=== PATIENT | female | born 1970 | race Caucasian/White ===

== ENCOUNTER 2018-02-12 02:06 | Emergency (ER) | payer OTHER ==
[~2018-02-12] VITALS: Ht 165.1 cm; Wt 65.8 kg
[2018-02-12] MEDS ORDERED: IMITREX50 M1 (02:24)
[2018-02-12] MEDS ORDERED: PROCHLORPERAZIN10 MG (02:25)
[2018-02-12] MEDS ORDERED: [UNRECOGNIZED DRUG - OTHER] (02:25)
[2018-02-12] MEDS ORDERED: DICLOFENAC SOD2.5 M1 OPH (03:44)
[2018-02-12] MEDS ORDERED: OCUFLOX5 ML OPH (03:44)
--- NOTE | 2018-02-12 03:46 | ED EYE COMPLAINT ---
History of Present Illness General Chief Complaint: Eye Problems Stated Complaint: "SOMTHING IN MY RT EYE" Source: patient Exam Limitations: no limitations Vital Signs & Intake/Output Vital Signs & Intake/Output Vital Signs Date Time Temp Pulse Resp B/P B/P Pulse O2 O2 Flow FiO2 Mean Ox Delivery Rate 02/12 222 82 18 157/89 100 Room Air 02/13 220 Room Air Allergies Coded Allergies: cephalexin (RASH 02/12/18) Reconcile Medications Prochlorperazine Maleate 10 MG TABLET 10 NAUSEA (Reported) Sumatriptan Succinate (Imitrex) 50 MG TABLET 50 MIGRAINE (Reported) Sumatriptan Succinate (Sumavel Dosepro) 6 MG/0.5 ML NDL.FR.INJ 6 MIGRAINE ( Reported) Triage Note: PT C/O R EYE PAIN THAT BEGAN AT 2100 THIS EVENING. PT REPORTS SHE WEARS CONTACTS AND HAD BEEN WEARING IT ALL DAY UNTIL SHE FELT IRRITATION. DENIES VISION CHANGES OR BLURRY VISION. PT REPORTS ONLY PAIN. Triage Nurses Notes Reviewed? yes HPI: Patient presents for evaluation of a constant right eye pain that began gradually earlier this evening. At about 9:00 patient took out her contact lenses because of the irritated feeling. She began to feel worse prompting her to come to the emergency department for evaluation. She is concerned that she has something in the eye although denies any known injury or definite foreign body into the eye (she states something may have come off a ceiling tile into her eye but she didn't have symptoms initially). She denies any associated fever or cold symptoms. Past History Travel History Traveled to [place] past 21 day No Medical History Any Pertinent Medical History? see below for history Neurological: migraine Surgical History Surgical History: non-contributory Psychosocial History What is your primary language Chinese Tobacco Use: Never used Family History Hx Contributory? No Review of Systems Review of Systems Constitutional: Reports: no symptoms. Eyes: Reports: see HPI. Ear: Reports: no symptoms. Nose: Reports: no symptoms. Mouth: Reports: no symptoms. Throat: Reports: no symptoms. Respiratory: Reports: no symptoms. Cardiovascular: Reports: no symptoms. GI: Reports: no symptoms. Genitourinary: Reports: no symptoms. Musculoskeletal: Reports: no symptoms. Skin: Reports: no symptoms. Neurological/Psychological: Reports: no symptoms. Hematologic/Endocrine: Reports: no symptoms. Immunologic/Allergic: Reports: no symptoms. All Other Systems: Reviewed and Negative Physical Exam General Appearance: well developed/nourished, MILD DISCOMFORT SECONDARY TO RIGHT EYE PAIN General Inspection: normal inspection General Inspection: SEE BELOW Eyelid: normal inspection, everted for exam Conjunctiva/Sclera: MILD INJECTION Cornea: normal inspection, examined w/fluorescein EOM: intact Pupil: normal accommodation, normal pupil Anterior Chamber: normal inspection Physical Exam Comments: Gen.: Well-nourished, well-developed, no acute respiratory distress. Head: Normocephalic, atraumatic. Eyes: See exam above Ears: Normal inspection bilaterally Nose: Normal inspection Throat/mouth : Moist mucosa Neck: Supple, full range of motion, no goiter Lungs: Quiet respirations Back: Normal range of motion Extremities: Normal range of motion grossly, no cyanosis clubbing or edema of the upper extremities Neurologic: Cranial nerves grossly intact, speech is clear Skin: warm and dry Psychiatric: Calm, cooperative, no apparent delusions or hallucinations Progress Differential Diagnosis: corneal abrasion, corneal foreign body, conjunctivitis, glaucoma, globe rupture Plan of Care: see d/c instructions Comments: Patient examined with slit lamp and tetracaine for analgesia. Departure Departure Disposition: HOME OR SELF CARE Condition: Stable Clinical Impression Primary Impression: Corneal irritation of right eye Referrals: Patient Has No Primary Care Dr (PCP/Family) Additional Instructions: Do not use your contact lens in the right eye.Diclofenac eyedrops as needed for pain. Ocuflox as prescribed prevent infection. Follow-up with the eye doctor listed (or your own) within 48-72 hours for reevaluation. Return if any concerns or sudden worsening. Thank you for choosing the [facility] for your care. It was a pleasure to serve you today. Fadi Ernst M.D. [facility] Departure Forms: Customer Survey General Discharge Information Prescriptions: Current Visit Scripts Ofloxacin (Ocuflox) 1 GTT OPH 4 TIMES/DAY #5 ML Diclofenac Sodium 1 GTT OPH 4 TIMES/DAY PRN EYE PAIN #5 ML
[2018-02-12 03:48] VITALS: BP 132/63
== END 2018-02-12 03:50 ==
LOC: ERH 02:06
DX: H57.8 Other specified disorders of eye and adnexa (principal)